=== PATIENT | female | born 1980 | race Caucasian/White ===

== ENCOUNTER 2022-12-13 06:00 | Day surgery (SDC) | payer OTHER ==
[~2022-12-13] VITALS: Ht 165.1 cm; Wt 76.7 kg
[2022-12-13] MEDS ORDERED: MORGIDOX100 MG PO (11:20)
== END 2022-12-13 15:50 | disposition home or self-care (01) ==
LOC: CIR.AMB 06:00
PROVIDERS: ATTEND Obstetrics & Gynecology
DX: N87.1 Moderate cervical dysplasia (principal); N92.0 Excessive and frequent menstruation with regular cycle; D25.0 Submucous leiomyoma of uterus; N84.0 Polyp of corpus uteri; Z20.822 Contact with and (suspected) exposure to COVID-19